=== PATIENT | female | born 1940 | race Caucasian/White ===

== ENCOUNTER 2023-02-02 09:12 | Inpatient (IN) | payer OTHER ==
[~2023-02-02] VITALS: Ht 157.5 cm; Wt 72.6 kg
[~2023-02-02 09:12] MED LIST: AMBIEN10 MG PO; CIPROFLOXACIN750 MG PO; CLONAZEPAM1 MG PO; CYMBALTA60 MG PO; DOCUSATE SODIU100 MG PO; GABAPENTIN800 MG PO; METHYLPRED4 MG/DOSE- PO; PERCOCET 5/3251 TAB PO; PROTONIX20 MG PO
[2023-02-03] MEDS ORDERED: RESTORIL (14:08)
[2023-02-03] MEDS ORDERED: CYMBALTA60 MG PO (14:08)
[2023-02-03] MEDS ORDERED: PROTONIX20 MG PO (14:09)
[2023-02-03] MEDS ORDERED: ARICEP PO (14:09)
[2023-02-07] MEDS ORDERED: AMOX-CLAV 875-1 EACH PO (07:22)
[2023-02-07] MEDS ORDERED: PERCOCET 5-3251 EACH PO (07:22)
[2023-02-07] MEDS ORDERED: MEDROLPACK PO (07:22)
[2023-02-07] MEDS ORDERED: ZOFRAN8 MG PO (07:23)
[2023-02-07] MEDS ORDERED: COLACE100 MG PO (07:23)
[2023-02-07] MEDS ORDERED: NEURONTIN800 MG PO (07:23)
== END 2023-02-09 17:09 | DRG 455 ==
LOC: O/R 02-07 05:35 → PED 02-07 05:35 → SURG 02-07 07:00 → PED 02-07 11:49
PROVIDERS: ADMIT Orthopaedic Surgery Orthopaedic Surgery of the Spine; ATTEND Orthopaedic Surgery Orthopaedic Surgery of the Spine
PROC: 0SG1071 Fusion of 2 or more Lumbar Vertebral Joints with Autologous Tissue Substitute, Posterior Approach, Posterior Column, Open Approach (ICD-10-PCS; 2023-02-07)
PROC: 0ST20ZZ Resection of Lumbar Vertebral Disc, Open Approach (ICD-10-PCS; 2023-02-07)
PROC: 07DR0ZZ Extraction of Iliac Bone Marrow, Open Approach (ICD-10-PCS; 2023-02-07)
PROC: XRGC0R7 Fusion of 2 or more Lumbar Vertebral Joints using Custom-Made Anatomically Designed Interbody Fusion Device, Open Approach, New Technology Group 7 (ICD-10-PCS; principal; 2023-02-07 07:00)
DX: M48.062 Spinal stenosis, lumbar region with neurogenic claudication (principal); G30.9 Alzheimer's disease, unspecified; M41.56 Other secondary scoliosis, lumbar region; M43.16 Spondylolisthesis, lumbar region; M51.36 Other intervertebral disc degeneration, lumbar region; F02.80 Dementia in other diseases classified elsewhere, unspecified severity, without behavioral disturbance, psychotic disturbance, mood disturbance, and anxiety